=== PATIENT | female | born 1995 | race Caucasian/White ===

== ENCOUNTER 2017-05-29 00:10 | Outpatient (CLI) | payer SELFPAY ==
[~2017-05-29] VITALS: Ht 160 cm; Wt 77.3 kg
[2017-05-29 00:43] LABS: DAU SCREEN DISCLAIMER
[2017-05-29 00:44] VITALS: BP 116/65
[2017-05-29] MEDS ORDERED: PNV#1CAP17 PO (01:00)
== END 2017-05-29 01:45 | disposition home or self-care (01) ==
LOC: LDOP 00:10
PROVIDERS: ATTEND Obstetrics & Gynecology
DX: O26.893 Other specified pregnancy related conditions, third trimester (principal); O99.333 Smoking (tobacco) complicating pregnancy, third trimester; F17.200 Nicotine dependence, unspecified, uncomplicated; R10.9 Unspecified abdominal pain; Z3A.36 36 weeks gestation of pregnancy
CPT/HCPCS: 59025; 80307; 81001; 87086; 89060; 99201; G0463; Q0114

== ENCOUNTER 2017-07-03 22:34 | Outpatient (CLI) | payer SELFPAY ==
[~2017-07-03] VITALS: Ht 157.5 cm; Wt 81.8 kg
[~2017-07-03 22:34] MED LIST: PNV#1CAP17 PO
[2017-07-03 22:50] VITALS: BP 119/74
[2017-07-03 23:10] LABS: DAU SCREEN DISCLAIMER
== END 2017-07-03 23:53 | disposition home or self-care (01) ==
LOC: LDOP 22:34
PROVIDERS: ATTEND Student in an Organized Health Care Education/Training Program
DX: O26.893 Other specified pregnancy related conditions, third trimester (principal); O48.0 Post-term pregnancy; O99.513 Diseases of the respiratory system complicating pregnancy, third trimester; O99.343 Other mental disorders complicating pregnancy, third trimester; O99.333 Smoking (tobacco) complicating pregnancy, third trimester; F32.9 Major depressive disorder, single episode, unspecified; J45.909 Unspecified asthma, uncomplicated; R10.9 Unspecified abdominal pain; F17.200 Nicotine dependence, unspecified, uncomplicated; Z3A.41 41 weeks gestation of pregnancy
CPT/HCPCS: 59025; 80307; 81001; 87086; 99211; G0463

== ENCOUNTER 2017-07-04 11:07 | Inpatient (IN) | payer MEDICAID, OTHER ==
[~2017-07-04] VITALS: Ht 157.5 cm; Wt 73.6 kg
[2017-07-04] MEDS ORDERED: OXYTOCIN 30U/ 0.9% NaCL 500ML 500 ML IV ONE (11:09)
[2017-07-04] MEDS ORDERED: D5%-LACTATED RINGERS 1,000 ML IV SCH (11:09)
[2017-07-04] MEDS: LACTATED RINGERS 1,000 ML IV SCH ×3 (11:22→16:54)
[2017-07-04] MEDS ORDERED: NEWBORN KIT ONE ×3 (11:24→13:30)
[2017-07-04] MEDS ORDERED: LIDOCAINE 1%, 20ML ONE (11:25)
[2017-07-04] MEDS ORDERED: OXYTOCIN 30U/ 0.9% NaCL 500ML 500 ML ONE (11:25)
[2017-07-04] MEDS ORDERED: MISOPROSTOL 200 MCG TABLET ONE (11:25)
[2017-07-04] MEDS ORDERED: TERBUTALINE 1 MG/ML, 1ML IVPush PRN (11:30)
[2017-07-04] MEDS ORDERED: SODIUM CITRATE/CITRIC ACID 30 ML UDC PO PRN (11:30)
[2017-07-04] MEDS ORDERED: FENTANYL PF 100 MCG/2ML IVPush PRN (11:30)
[2017-07-04] MEDS ORDERED: ONDANSETRON 2MG/ML, 2ML IVPush PRN (11:30)
[2017-07-04] MEDS ORDERED: METOCLOPRAMIDE 5 MG/ML, 2ML IVPush PRN (11:30)
[2017-07-04] MEDS ORDERED: FENTANYL PF 100 MCG/2ML IV PRN (11:30)
[2017-07-04 11:40] VITALS: BP 111/65
[2017-07-04 11:52] LABS: HEMATOCRIT 33.9 % (34.6-47.8); HEMOGLOBIN 11.4 g/dL (11.7-16.4); WHITE BLOOD COUNT 8.3 x10^3/uL (4.5-13.2)
[2017-07-04] MEDS ORDERED: FENTANYL/BUPIV./NS/PF 250 ML EPIDCONT ONE (12:14)
[2017-07-04] MEDS ORDERED: FENTANYL PF 100 MCG/2ML ONE ×2 (12:14→15:31)
[2017-07-04] MEDS ORDERED: BUPIVACAINE 0.25% ONE (12:14)
[2017-07-04] MEDS ORDERED: LIDOCAINE/PF 1.5%-EPI 1:200K, 30ML ONE (12:15)
[2017-07-04 12:46] LABS: DAU SCREEN DISCLAIMER
[2017-07-04] MEDS ORDERED: OXYTOCIN 30U/ 0.9% NaCL 500ML 500 ML IV PRN (13:21)
[2017-07-04] MEDS ORDERED: FENTANYL/BUPIV./NS/PF 250 ML EPIDCONT SCH (13:23)
[2017-07-04] MEDS ORDERED: LACTATED RINGERS 1,000 ML IV SCH ×3 (13:23→16:54)
[2017-07-04] MEDS ORDERED: LACTATED RINGERS 1,000 ML IVBOLUS PRN (13:30)
[2017-07-04] MEDS ORDERED: LACTATED RINGERS 1,000 ML INTUTE PRN (14:00)
[2017-07-04] MEDS ORDERED: TERBUTALINE 1 MG/ML, 1ML ONE (14:14)
[2017-07-04] MEDS ORDERED: SODIUM CITRATE/CITRIC ACID 30 ML UDC ONE (15:19)
[2017-07-04] MEDS ORDERED: METOCLOPRAMIDE 5 MG/ML, 2ML ONE (15:20)
[2017-07-04] MEDS: OXYTOCIN 30U/ 0.9% NaCL 500ML 500 ML IV SCH (15:22)
[2017-07-04] MEDS ORDERED: METOCLOPRAMIDE 5 MG/ML, 2ML IV ONE (15:30)
[2017-07-04] MEDS ORDERED: CEFAZOLIN 1,000 MG ONE (15:38)
[2017-07-04] MEDS ORDERED: EPHEDRINE 50 MG/ML, 1ML ONE (15:38)
[2017-07-04] MEDS ORDERED: PHENYLEPHRINE 10 MG/ML ONE (15:38)
[2017-07-04] MEDS ORDERED: morphine SULFATE/PF 1 MG/ML, 10ML ONE (15:57)
[2017-07-04] MEDS ORDERED: OXYTOCIN 30U/ 0.9% NaCL 500ML 500 ML IV SCH (16:54)
[2017-07-04] MEDS ORDERED: CALCIUM CARBONATE 500 MG TAB.CHEW PO PRN (17:00)
[2017-07-04] MEDS ORDERED: MEPERIDINE/PF 25MG/0.5ML IM PRN (17:00)
[2017-07-04] MEDS ORDERED: DIPH,PERTUSS(ACELL),TET VAC/PF NC IM-VACC PRN (17:00)
[2017-07-04] MEDS ORDERED: OXYcodone/APAP 5/325MG TABLET PO PRN (17:00)
[2017-07-04] MEDS ORDERED: MEPERIDINE/PF 50 MG/ML IM PRN (17:00)
[2017-07-04] MEDS ORDERED: morphine SULFATE 10 MG/ML, 1ML IVPush PRN ×2 (17:00)
[2017-07-04] MEDS ORDERED: ONDANSETRON 2MG/ML, 2ML IV PRN (17:00)
[2017-07-04] MEDS ORDERED: OXYcodone IR 5MG TABLET PO PRN (17:00)
[2017-07-04] MEDS ORDERED: MISOPROSTOL 200 MCG TABLET PR PRN (17:00)
[2017-07-04] MEDS ORDERED: KETOROLAC 30 MG/1 ML ONE (18:04)
[2017-07-04] MEDS ORDERED: HYDROmorphone 1 MG/ML, 1ML ONE (18:05)
[2017-07-04] MEDS: KETOROLAC 30 MG/1 ML IV SCH (18:08)
[2017-07-04] MEDS ORDERED: HYDROmorphone 1 MG/ML, 1ML IV ONE (18:30)
[2017-07-04 19:45] VITALS: BP 103/55
[2017-07-04] MEDS: DOCUSATE 100 MG CAPSULE PO SCH (21:00)
[2017-07-05 00:06] LABS: HEMATOCRIT 29.1 % (34.6-47.8); HEMOGLOBIN 9.7 g/dL (11.7-16.4); WHITE BLOOD COUNT 8.7 x10^3/uL (4.5-13.2)
[2017-07-05] MEDS: KETOROLAC 30 MG/1 ML IV SCH ×3 (00:30→12:18)
[2017-07-05 00:47] VITALS: BP 106/51
[2017-07-05] MEDS: LACTATED RINGERS 1,000 ML IV SCH (00:54)
[2017-07-05] MEDS: OXYTOCIN 30U/ 0.9% NaCL 500ML 500 ML IV SCH (01:22)
[2017-07-05] MEDS: OXYcodone/APAP 5/325MG TABLET PO PRN ×5 (04:29→20:26)
[2017-07-05 05:00] VITALS: BP 102/56
[2017-07-05 07:46] VITALS: BP 109/71
[2017-07-05] MEDS: DOCUSATE 100 MG CAPSULE PO SCH ×2 (08:28→20:26)
[2017-07-05] MEDS: PRENATAL VIT/IRON/FA 1 EACH TABLET PO SCH (08:28)
[2017-07-05 14:00] VITALS: BP 112/68
[2017-07-05] MEDS: IBUPROFEN 600 MG TABLET PO PRN (18:40)
[2017-07-05 19:20] VITALS: BP 110/62
[2017-07-05] MEDS: SIMETHICONE 80 MG CHEW TAB PO PRN (23:58)
[2017-07-06] MEDS: OXYcodone/APAP 5/325MG TABLET PO PRN ×2 (00:37→04:48)
[2017-07-06] MEDS: IBUPROFEN 600 MG TABLET PO PRN ×4 (00:37→20:30)
[2017-07-06 08:00] VITALS: BP 108/53
[2017-07-06] MEDS: SIMETHICONE 80 MG CHEW TAB PO PRN ×2 (10:00→23:42)
[2017-07-06] MEDS: FERROUS SULFATE 325 MG TABLET PO SCH (10:16)
[2017-07-06] MEDS: PRENATAL VIT/IRON/FA 1 EACH TABLET PO SCH (10:16)
[2017-07-06] MEDS: DOCUSATE 100 MG CAPSULE PO SCH ×2 (10:16→20:30)
[2017-07-06] MEDS: OXYcodone IR 5MG TABLET PO PRN ×3 (10:17→20:30)
[2017-07-06 21:10] VITALS: BP 111/69
[2017-07-07] MEDS: SIMETHICONE 80 MG CHEW TAB PO PRN ×2 (00:41→05:57)
[2017-07-07] MEDS: OXYcodone IR 5MG TABLET PO PRN ×6 (00:41→22:12)
[2017-07-07] MEDS: IBUPROFEN 600 MG TABLET PO PRN ×3 (05:56→20:13)
[2017-07-07 07:10] VITALS: BP 119/66
[2017-07-07] MEDS ORDERED: OXYC-302 PO (09:40)
[2017-07-07] MEDS ORDERED: DOCU-131 PO (09:40)
[2017-07-07] MEDS ORDERED: IBUP-1222 PO (09:40)
[2017-07-07] MEDS: DOCUSATE 100 MG CAPSULE PO SCH ×2 (09:57→20:13)
[2017-07-07] MEDS: PRENATAL VIT/IRON/FA 1 EACH TABLET PO SCH (09:57)
[2017-07-07] MEDS: FERROUS SULFATE 325 MG TABLET PO SCH (09:58)
[2017-07-07] MEDS ORDERED: CALCIUM CARBONATE 500 MG TAB.CHEW PO PRN (19:30)
[2017-07-07] MEDS ORDERED: OXYcodone IR 5MG TABLET PO PRN (19:30)
[2017-07-07] MEDS ORDERED: OXYcodone/APAP 5/325MG TABLET PO PRN (19:30)
[2017-07-07] MEDS ORDERED: ONDANSETRON 2MG/ML, 2ML IV PRN (19:30)
[2017-07-07] MEDS ORDERED: morphine SULFATE 10 MG/ML, 1ML IVPush PRN ×2 (19:30)
[2017-07-07] MEDS ORDERED: SIMETHICONE 80 MG CHEW TAB PO PRN (19:30)
[2017-07-07 21:15] VITALS: BP 120/63
[2017-07-08] MEDS: OXYcodone IR 5MG TABLET PO PRN ×3 (02:53→13:31)
[2017-07-08] MEDS: IBUPROFEN 600 MG TABLET PO PRN ×2 (02:53→09:31)
[2017-07-08 07:28] VITALS: BP 103/63
[2017-07-08] MEDS: DOCUSATE 100 MG CAPSULE PO SCH (09:32)
[2017-07-08] MEDS: FERROUS SULFATE 325 MG TABLET PO SCH (09:32)
[2017-07-08] MEDS: PRENATAL VIT/IRON/FA 1 EACH TABLET PO SCH (09:32)
== END 2017-07-08 14:35 | disposition home or self-care (01) | DRG 766 ==
LOC: LDIP 11:07 → 2NW 19:32
PROVIDERS: ADMIT Student in an Organized Health Care Education/Training Program; ATTEND Student in an Organized Health Care Education/Training Program
PROC: 10D00Z1 Extraction of Products of Conception, Low, Open Approach (ICD-10-PCS; principal; 2017-07-04)
DX: O77.9 Labor and delivery complicated by fetal stress, unspecified (principal); D64.9 Anemia, unspecified; F17.210 Nicotine dependence, cigarettes, uncomplicated; F12.90 Cannabis use, unspecified, uncomplicated; J45.909 Unspecified asthma, uncomplicated; O99.334 Smoking (tobacco) complicating childbirth; O99.52 Diseases of the respiratory system complicating childbirth; O99.03 Anemia complicating the puerperium; K59.00 Constipation, unspecified; Z37.0 Single live birth; Z90.89 Acquired absence of other organs; Z91.040 Latex allergy status; Z88.8 Allergy status to other drugs, medicaments and biological substances; Z3A.41 41 weeks gestation of pregnancy
CPT/HCPCS: 36415; 80307; 82803; 85025; 86850; 86900; J0690; J1170; J1885; J2274; J3010; J3490; G0479; J2370; J2590; J2765; J3105; J7120